=== PATIENT | female | born 1995 | race Caucasian/White ===

== ENCOUNTER 2017-03-22 04:42 | Emergency (ER) | payer OTHER ==
[2017-03-22 06:15] VITALS: BP 103/65
== END 2017-03-22 06:15 | disposition home or self-care (01) ==
LOC: ED 04:42
DX: S39.012A Strain of muscle, fascia and tendon of lower back, initial encounter (principal); Z85.05 Personal history of malignant neoplasm of liver; Z85.118 Personal history of other malignant neoplasm of bronchus and lung; Z98.890 Other specified postprocedural states; T40.605A Adverse effect of unspecified narcotics, initial encounter; X58.XXXA Exposure to other specified factors, initial encounter; Y93.89 Activity, other specified; Y99.8 Other external cause status; Y92.89 Other specified places as the place of occurrence of the external cause
CPT/HCPCS: J1885; Q0162

== ENCOUNTER 2017-11-19 03:14 | Inpatient (IN) | payer OTHER ==
[~2017-11-19] VITALS: Ht 157.5 cm; Wt 45.4 kg
[2017-11-19 04:14] LABS: BASOPHIL % 0.1 % (0-2); PLATELET COUNT 206 x10^3mcL (130-400)
[2017-11-19 04:15] LABS: UA SPECIFIC GRAVITY 1.025 (1.005-1.035); microscopic required? YES; urine erythrocyte 2+ (NEGATIVE)
[2017-11-19 04:25] LABS: CALCIUM 8.9 mg/dL (8.5-10.1); CARBON DIOXIDE 23.4 mmol/L (21-32); CHLORIDE SERUM 107 mmol/L (98-107); CREATININE SERUM 0.6 mg/dL (0.6-1.0); GFR1 > 60 mL/min; GLUCOSE SERUM 127 mg/dL (74-106); POTASSIUM SERUM 3.5 mmol/L (3.5-5.1); SODIUM SERUM 142 mmol/L (136-145)
[2017-11-19 04:37] LABS: ALKALINE PHOSPHATASE 72 U/L (46-116); ALT/SGPT 18 U/L (14-59); AST/SGOT 19 U/L (15-37); BILIRUBIN TOTAL 0.87 mg/dL (0.20-1.00); FREE T4 0.87 ng/dL (0.76-1.46); LIPASE 83 IU/L (73-393); TOTAL PROTEIN, SERUM 7.1 g/dL (6.4-8.2)
[2017-11-19 05:36] VITALS: BP 103/66
[2017-11-19 07:28] LABS: MAGNESIUM 2.1 mg/dL (1.8-2.4); PHOSPHOROUS 2.6 mg/dL (2.5-4.9)
[2017-11-19 07:36] LABS: FREE T4 0.91 ng/dL (0.76-1.46); FREE THYROXINE INDEX 2.1 ug/dL (1.4-4.5); T4(THYROXINE) 6.2 ug/dL (4.7-13.3)
[2017-11-19 07:43] LABS: CHOLESTEROL/HDL RATIO 1.8
[2017-11-19 07:54] LABS: T3 TOTAL 0.95 ng/mL
[2017-11-19 08:00] VITALS: BP 113/67
[2017-11-19 10:55] VITALS: BP 112/59
[2017-11-19 12:36] VITALS: BP 105/65
[2017-11-19 16:43] VITALS: BP 103/58
[2017-11-20 05:05] VITALS: BP 98/53
[2017-11-20 05:43] LABS: BASOPHIL % 0.4 % (0-2); RED CELL DISTRIBUTION WIDTH 12.5 % (11.5-14.5)
[2017-11-20 06:02] LABS: CALCIUM 7.8 mg/dL (8.5-10.1); CARBON DIOXIDE 22.2 mmol/L (21-32); CHLORIDE SERUM 108 mmol/L (98-107); CREATININE SERUM 0.4 mg/dL (0.6-1.0); GFR1 > 60 mL/min; GLUCOSE SERUM 78 mg/dL (74-106); POTASSIUM SERUM 3.1 mmol/L (3.5-5.1); SODIUM SERUM 140 mmol/L (136-145)
[2017-11-20 07:59] LABS: PLATELET COUNT 128 x10^3mcL (130-400)
[2017-11-20 08:36] VITALS: BP 102/62
[2017-11-20] MEDS ORDERED: SIMETHICONE80 MG CH (12:02)
[2017-11-20] MEDS ORDERED: REGLAN10 M1 PO (12:03)
[2017-11-20 12:42] VITALS: BP 101/59
== END 2017-11-20 13:20 | disposition home or self-care (01) | DRG 249 ==
LOC: ED 03:14 → DU 04:13
PROVIDERS: Emergency Medicine; Family Medicine; Internal Medicine Gastroenterology
PROC: 0DB78ZX Excision of Stomach, Pylorus, Via Natural or Artificial Opening Endoscopic, Diagnostic (ICD-10-PCS; principal; 2017-11-19 09:30)
DX: A08.4 Viral intestinal infection, unspecified (principal); N17.0 Acute kidney failure with tubular necrosis; C22.0 Liver cell carcinoma; E87.2 Acidosis; D69.6 Thrombocytopenia, unspecified; E83.51 Hypocalcemia; E86.0 Dehydration; D72.829 Elevated white blood cell count, unspecified; R31.9 Hematuria, unspecified; D72.819 Decreased white blood cell count, unspecified; D64.9 Anemia, unspecified; E87.6 Hypokalemia; E87.8 Other disorders of electrolyte and fluid balance, not elsewhere classified
CPT/HCPCS: 43235; 83880; 84439; 87046; 87046-59; J1200; J1610; J2250; J2310; J2405; J2765; J3010; J3490; J7030; Q0092

== ENCOUNTER 2020-02-19 06:03 | Inpatient (IN) | payer OTHER, SELFPAY ==
[~2020-02-19] VITALS: Ht 157.5 cm; Wt 47.6 kg
[~2020-02-19 06:03] MED LIST: REGLAN10 M1 PO; SIMETHICONE80 MG CH
[2020-02-19 06:09] VITALS: Ht 157.5 cm; Wt 47.6 kg
[2020-02-19 08:15] LABS: T3 TOTAL 0.78 ng/mL
[2020-02-19 08:18] LABS: FREE T4 0.89 ng/dL (0.76-1.46); FREE THYROXINE INDEX 1.9 ug/dL (1.4-4.5); T4(THYROXINE) 5.8 ug/dL (4.7-13.3)
[2020-02-19 08:20] LABS: ALBUMIN 3.6 g/dL (3.4-5.0); ALKALINE PHOSPHATASE 43 U/L (46-116); ALT/SGPT 17 U/L (14-59); AST/SGOT 19 U/L (15-37); BILIRUBIN TOTAL 0.8 mg/dL (0.20-1.00); C REACTIVE PROTEIN 2.8 mg/dL (<=0.9); CALCIUM 7.9 mg/dL (8.5-10.1); CHLORIDE SERUM 103 mmol/L (98-107); CREATININE SERUM 0.7 mg/dL (0.6-1.0); GFR1 > 60 mL/min; GLUCOSE SERUM 109 mg/dL (74-106); SODIUM SERUM 137 mmol/L (136-145); TOTAL PROTEIN, SERUM 6.5 g/dL (6.4-8.2)
[2020-02-19 08:40] LABS: BASOPHIL % 0 % (0-2); PLATELET COUNT 124 x10^3mcL (130-400); RED CELL DISTRIBUTION WIDTH 12.1 % (11.5-14.5)
[2020-02-19 08:41] LABS: ERYTHROCYTE SED RATE 9 mm/hr (0-20)
[2020-02-19 08:56] LABS: CK-MB < 0.5 ng/mL (0-3.6); CREATINE KINASE 39 U/L (26-192)
[2020-02-19 09:56] LABS: MAGNESIUM 1.6 mg/dL (1.8-2.4); PHOSPHOROUS 1.2 mg/dL (2.5-4.9)
[2020-02-19 10:16] LABS: microscopic required? YES; urine erythrocyte 3+ (NEGATIVE)
[2020-02-19 12:05] VITALS: BP 100/59
[2020-02-19 12:37] VITALS: BP 95/62
[2020-02-19 16:47] VITALS: BP 99/56
[2020-02-19 20:38] VITALS: BP 110/62
[2020-02-19 20:46] LABS: PLATELET COUNT 146 x10^3mcL (130-400); RED CELL DISTRIBUTION WIDTH 12.6 % (11.5-14.5)
[2020-02-19 21:25] LABS: AMPHETAMINE QUAL UR NONE DETECTED (See below)
[2020-02-19 21:30] LABS: BAND NEUTROPHIL 2 % (0-10); BASOPHIL 0 % (0-2); MONOCYTE 4 % (0-7); SEGMENTED NEUTROPHILS 36 % (37-75)
[2020-02-19 21:31] LABS: rbc morphology (normal/abnorm) NORMAL (NORMAL)
[2020-02-19 21:32] LABS: PLATELET MORPHOLOGY PLATELETS DECREASED
[2020-02-20 06:19] VITALS: BP 94/55
[2020-02-20 06:50] LABS: CALCIUM 7.9 mg/dL (8.5-10.1); CARBON DIOXIDE 25.5 mmol/L (21-32); CHLORIDE SERUM 109 mmol/L (98-107); CREATININE SERUM 0.6 mg/dL (0.6-1.0); GFR1 > 60 mL/min; GLUCOSE SERUM 91 mg/dL (74-106); MAGNESIUM 2.2 mg/dL (1.8-2.4); PHOSPHOROUS 2.7 mg/dL (2.5-4.9); SODIUM SERUM 139 mmol/L (136-145)
[2020-02-20 07:02] LABS: PLATELET COUNT 133 x10^3mcL (130-400); RED CELL DISTRIBUTION WIDTH 12.7 % (11.5-14.5)
[2020-02-20 08:00] VITALS: BP 102/54
[2020-02-20 12:00] VITALS: BP 100/61
[2020-02-20 12:22] LABS: BAND NEUTROPHIL 2 % (0-10); BASOPHIL 0 % (0-2); MONOCYTE 11 % (0-7); SEGMENTED NEUTROPHILS 58 % (37-75)
[2020-02-20 12:24] LABS: PLATELET MORPHOLOGY PLATELETS NORMAL; rbc morphology (normal/abnorm) ABNORMAL (NORMAL)
[2020-02-20 12:36] LABS: PLATELET COUNT 135 x10^3mcL (130-400); RED CELL DISTRIBUTION WIDTH 12.9 % (11.5-14.5)
[2020-02-20 12:43] LABS: BAND NEUTROPHIL 3 % (0-10); BASOPHIL 0 % (0-2); MONOCYTE 12 % (0-7); PLATELET MORPHOLOGY PLATELETS NORMAL; SEGMENTED NEUTROPHILS 61 % (37-75); rbc morphology (normal/abnorm) ABNORMAL (NORMAL)
[2020-02-20 17:29] VITALS: BP 100/61
== END 2020-02-20 18:10 | disposition home or self-care (01) | DRG 720 ==
LOC: ED 06:03 → DU 09:24
PROVIDERS: Specialist; ADMIT Internal Medicine; ATTEND Internal Medicine
DX: A41.9 Sepsis, unspecified organism (principal); C22.7 Other specified carcinomas of liver; E83.39 Other disorders of phosphorus metabolism; F41.9 Anxiety disorder, unspecified; E83.42 Hypomagnesemia; E87.6 Hypokalemia; R00.0 Tachycardia, unspecified; F32.9 Major depressive disorder, single episode, unspecified; Z79.899 Other long term (current) drug therapy
CPT/HCPCS: 36600; 84439; G0378; J0456; J0696; J2060; J2405; J3475; J7030; J7042; J7050; J7060; Q0092; U0003-CS